=== PATIENT | male | born 1965 | race Caucasian/White ===

== ENCOUNTER 2017-05-31 17:40 | Emergency (ER) | payer SELFPAY ==
[2017-05-31 17:52] VITALS: BMI 32.3
--- NOTE | 2017-05-31 18:43 | DR.GENAD ---
HPI - PCP Primary Care Physician: unk - Complaint/Symptoms Chief Complaint Doctors Comments: Patient states he had to much to drink and had to much liquor. States he drank about a liter of gin and took a pain pill earlier. He denies chest pain , SOB or abdominal pain. States he has not local doctor. He denies any recent tauma. EMS states patient was unable to stand and they were afraid to leave him home alone. Patient denies headache, dizziness or blurred vision. States she lives along and does all his cooking and cleaning and is able to take care of himself at home. Chief Complaint:: ems was called out to pt being unresponsive. upon arrival ems states pt has had excessive etoh and was unable to care for himself. pt was unable to move himself or even pick his head up. - Nurses notes reviewed Nurses Notes Review: Yes - Source History Provided: Patient, EMS - Mode of Arrival Mode of Arrival: EMS - Timing Onset of Chief Complaint: 05/31/17 Came on: Gradually - Duration Duration: Constant How lon Duration: Hours - Location Location: unsteady gain - Severity Severity: Moderate - Modifying Factors Worsens:: ambulating Improves:: nothing PMH - PMH Past Medical History: Yes Past Medical History: Hypertension Past Surgical History: Yes Surgical History: Weight Loss Surgery, Other - Family History History of Family Medical Conditions: No - Social History Does any household member use tobacco: No Alcohol Use: Heavy, DAILY Do you use any recreational Drugs:: No Lives With: Family Lives Where: Home - infectious screening In the last 2 months have you had wt loss of >10#?: NO Have you had fever, night sweats or hemotysis?: No Have you traveled outside the country in the last 6 months?: No Isolation: Standard ROS - Review of Systems Constitutional: No Symptoms Reported, Weakness Eyes: No Symptoms Reported ENTM: No Symptoms Reported Respiratoy: No Symptoms Reported. negative: See HPI, Productive Cough, Non- Productive Cough, Moist Cough, Dry Cough, Hacking Cough, Barking Cough, Brassy Cough, Orthopnea, Short of Breath, Stridor, Wheezing, Hemoptysis, Other Cardiovascular: No Symptoms Reported. negative: See HPI, Chest Pain, Edema, Palpitations, Syncope, Cyanosis, Skin Mottling, Other Gastrointestinal/Abdominal: No Symptoms Reported. negative: See HPI, Abdominal Pain, Constipation, Diarrhea, Nausea, Vomiting, Food Intolerance, Other Genitourinary: No Symptoms Reported Neurological: No Symptoms Reported, Problems Walking Musculoskeletal: No Symptoms Reported Integumentary: No Symptoms Reported Hematologic/Lymphatic: No Symptoms Reported Endocrine: No Symptoms Reported Psychiatric: No Symptoms Reported PE - Vital Signs Vitals: Temperature 99.1 F Pulse Rate 61 Respiratory Rate 20 Blood Pressure [Right Arm] 124/76 Blood Pressure 129/78 O2 Sat by Pulse Oximetry 98 - General Limitations: No Limitations General Appearance: Alert, In No Apparent Distress, Appears Intoxicated - Head Head Exam: Normal Inspection, Atraumatic, Normocephalic - Eyes Eye exam: Normal Appearance, PERRL, EOMI. negative: Scleral Icterus, Conjunctival Injection, Nystagmus, Miosis, Mydrasis, Periorbital Swelling, Periorbital Tenderness, Other - ENT ENT Exam: Normal Exam, Normal Oropharynx, Normal External Ear Exam, Mucous Membranes Moist External Ear Exam: Normal External Inspection TM/Canal Exam: Bilateral Normal Nose Exam: Normal Nose Exam Mouth Exam: Normal Inspection Throat Exam: Normal Inspection - Neck Neck Exam: Normal Inspection, Full ROM, Trachea Midline - Chest Chest Inspection: Normal Inspection, Symmetric Chest Wall Rise - Respiratory Respiratory Exam: Normal Lung Sounds Bilat Respiratory Exam: Bilateral Clear to Auscultation - Cardiovascular Cardiovascular Exam: Regular Rate, Normal Rhythm, Normal Heart Sounds - Abdominal Exam Abdominal Exam: Normal Inspection, Normal Bowel Sounds, Soft. negative: Distention, Tenderness, Guarding, Rebound, Rigidity, Dimnished Bowel Sounds, Hyperactive Bowel Sounds, Hypoactive Bowel Sounds, Organomegaly, Trauma, Incision, Ascites, Mass, Bruit, Pulsatile Mass, Hernia, Other Abdominal Tenderness: negative: RUQ, RLQ, LUQ, LLQ, Epigastrium, Suprapubic, Diffuse, Mild, Moderate, Severe, Other - Extremities Extremities Exam: Normal Inspection, Full ROM, Normal Capillary Refill. negative: Tenderness, Edema, Joint Swelling, Calf Tenderness, Other - Back Back Exam: Normal Inspection, Full ROM - Neurologic Neurological Exam: Alert, Oriented X3, CN II-XII Intact, Reflexes Normal. negative: Normal Gait (gait not tested) - Psychiatric Psychiatric Exam: Normal Affect, Normal Mood - Skin Skin Exam: Warm, Dry, Intact, Normal Color ROR - Labs Reviewed Laboratory Results Reviewed?: Yes (all labs and x-ray results reviewed) Result Diagrams: 05/31/17 18:45 05/31/17 18:45 - Diagnosis Discharge Problem: Hyperglycemia, Alcohol abuse Acute alcohol intoxication Qualifiers: Complication of substance-induced condition: uncomplicated Qualified Code(s): F10.929 - Alcohol use, unspecified with intoxication, unspecified - Discharge Plan Disposition: 07 AGAINST MEDICAL ADVICE Condition: Stable - Follow ups/Referrals Follow ups/Referrals: NFD,None [Primary Care Provider] - 3 days - Instructions Instructions: Alcohol Use Disorder
[2017-05-31 18:44] LABS: BILIRUBIN,URINE NEGATIVE (NEGATIVE); BLOOD/HEMOGLOBIN,URINE NEGATIVE (NEGATIVE); GLUCOSE, URINE NEGATIVE (NEGATIVE); KETONES,URINE NEGATIVE (NEGATIVE); LEUKOCYTE ESTERASE ,URINE NEGATIVE (NEGATIVE); NITRITES,URINE NEGATIVE (NEGATIVE); PROTEIN,URINE NEGATIVE (NEGATIVE); UROBILINOGEN,URINE NORMAL (NORMAL)
[2017-05-31 18:55] LABS: BASOPHILS # (AUTO) 0.1 X10^3/uL (0.0-0.1); BASOPHILS % (AUTO) 1.2 % (0.2-1.0); EOSINOPHILS # (AUTO) 0.1 x10^3/uL (0.0-0.2); EOSINOPHILS % (AUTO) 2.7 % (0.9-2.9); HEMATOCRIT 37.6 % (42.0-54.0); HEMOGLOBIN 12.1 g/dL (13.5-18.0); LYMPHOCYTES % (AUTO) 39.1 % (21.0-51.0); MEAN CORPUSCULAR HEMOGLOBIN 23.7 pg (27.0-34.0); MEAN CORPUSCULAR HGB CONC 32.2 g/dL (33.0-35.0); MEAN CORPUSCULAR VOLUME 73.5 fL (80.0-100.0); MEAN PLATELET VOLUME 8.8 fL (7.4-11.0); MONOCYTES # (AUTO) 0.6 x10^3/uL (0.3-0.8); MONOCYTES % (AUTO) 11.1 % (0.0-13.0); NEUTROPHILS # (AUTO) 2.4 x10^3/uL (2.2-4.8); NEUTROPHILS % (AUTO) 45.9 % (42.0-75.0); PLATELET COUNT 206 X10^3/uL (150.0-450.0); RED BLOOD COUNT 5.11 X10^6/uL (4.7-6.0); RED CELL DISTRIBUTION WIDTH 19.3 % (11.6-16.5); WHITE BLOOD COUNT 5.1 X10^3/uL (3.6-10.0)
[2017-05-31] MEDS ORDERED: NS 1000 ML 1,000 ML with THIAMINE HCL INJ 100 MG, MAGNESIUM SULFATE 50% INJ 1 GM, MVI I... IV SCH ×5 (19:00)
--- NOTE | 2017-05-31 19:01 | RAD ---
Examination: Portable AP chest History: Unresponsive Findings: Normal transverse heart diameter with clear lungs and pleural spaces. Impression: No acute chest findings on portable AP chest. Reported By:
[2017-05-31] MEDS ORDERED: MAGNESIUM SULFATE 50% INJ ONE (19:09)
[2017-05-31] MEDS ORDERED: NS 1000 ML 1,000 ML ONE (19:09)
[2017-05-31] MEDS ORDERED: THIAMINE HCL INJ ONE (19:10)
[2017-05-31] MEDS ORDERED: PHENOBARBITAL SODIUM INJ 65 MG VIAL ONE (19:11)
[2017-05-31 19:12] LABS: COLOR,URINE PALE YELLOW (YELLOW)
[2017-05-31] MEDS ORDERED: MVI INJ (ADULT) IV ONE (19:12)
[2017-05-31 19:13] LABS: APPEARANCE,URINE CLEAR (CLEAR); BACTERIA,URINE NEGATIVE /HPF (NEGATIVE); RBC,URINE 0-3 /HPF (NEGATIVE); SQUAMOUS EPITHELIAL CELL,UR RARE /HPF (NEGATIVE)
[2017-05-31 19:14] LABS: BLOOD UREA NITROGEN 15 mg/dL (7-18); CALCIUM 8.2 mg/dL (8.5-10.1); CARBON DIOXIDE 25.4 mmol/L (21-32); CHLORIDE 110 mmol/L (98-107); CREATININE 0.98 mg/dL (0.70-1.30); SODIUM 146 mmol/L (136-145); TROPONIN I < 0.02 ng/mL (0-1.5); eGFR BLACK RACES > 60 (>60); eGFR NON BLACK RACES > 60 (>60)
[2017-05-31 19:15] LABS: HYPOCHROMASIA SLIGHT; PLATELET MORPHOLOGY COMMENT NORMAL (NORMAL)
[2017-05-31 19:17] LABS: ALANINE AMINOTRANSFERASE 20 Units/L (12-78); ALBUMIN 3.6 g/dL (3.4-5.0); ALKALINE PHOSPHATASE 75 Units/L (46-116); AMYLASE 84 Units/L (25-115); ASPARTATE AMINO TRANSFERASE 28 Units/L (15-37); BLOOD ALCOHOL 287 mg/dL (0-19.9); CKMB % 0.9 % (<4); CREATINE KINASE 300 Units/L (39-308); CREATINE KINASE MB 2.7 ng/mL (0-4.0); LIPASE 243 Units/L (73-393); MAGNESIUM 2.1 mg/dL (1.7-2.9); TOTAL PROTEIN 6.7 g/dL (6.4-8.2)
[2017-05-31 21:37] VITALS: BP 129/72
== END 2017-05-31 21:38 | disposition left against medical advice (07) ==
LOC: ER 17:59
DX: F10.929 Alcohol use, unspecified with intoxication, unspecified (principal); R73.9 Hyperglycemia, unspecified
CPT/HCPCS: 36415; 71045; 80053; 80307; 81001; 82150; 82550; 82553; 83690; 83735; 84484; 85025; 85610; 85730; 93005; 93010; 96365; 96367; 99282; 99284; A4222; G0434; G6040; J2560; J3411; J3475

== ENCOUNTER 2024-12-12 15:03 | Inpatient (IN) ==
[2024-12-12] MEDS ORDERED: LEVSIN/MAALOX/LIDOC VISC ONE (15:17)
[2024-12-12] MEDS ORDERED: PROTONIX INJ 40 MG VIAL ONE (15:17)
[2024-12-12] MEDS ORDERED: ZOFRAN INJ 4 MG VIAL ONE (15:17)
[2024-12-12] MEDS ORDERED: TORADOL 30 MG VIAL ONE (15:27)
--- NOTE | 2024-12-12 15:28 | DR.ABDMALE ---
HPI Time seen Time Seen by Provider: 12/12/24 15:27 PCP Primary Care Physician: NFD Complaint Chief Complaint Doctors Comments: Patient states that when he woke up he felt fine but 30 minutes ago he began to have some right upper quadrant and left upper quadrant abdominal pain that made him almost passed out. Patient stated he did ate some old chicken today. No other day has anything to do would he also smoke marijuana and used meth today also. He states he became nauseated and developed this abdominal pain prior to going fishing. Chief Complaint:: Pt states he woke up feeling fine today, but about 30 minutes ago he began having RUQ and LUQ abdominal pain that made him collapse. Pt denies losing consciousness and states it's "easing off now". Does admit some nausea right after the pain first hit, but is not nauseated now. Pt admits to using marijuana and meth "a few days ago". Pt states he ate an old rotisserie chicken earlier today. COVID-19 Coronavirus risk:travel/contact w/high risk person: No Has patient experienced Coronavirus symptoms: No Mode of arrival Mode of Arrival: Ambulatory Timing Onset of Chief Complaint: 12/12/24 PMH PMH Past Medical History: Yes Past Medical History: Arthritis, Gout and Hypertension Past Surgical History: Yes Surgical History: Ortho Surgery and Weight Loss Surgery Family History History of Family Medical Conditions: Yes Family Medical History: Diabetes Mellitus, Cancer, AR and Coronary Artery Disease Social History Type of Tobacco Use: Cigarettes Do you use any recreational Drugs:: Yes (meth, weed) Lives With: Friend Lives Where: Home Travel Risk Coronavirus risk:travel/contact w/high risk person: No Has patient experienced Coronavirus symptoms: No Infectious screening Have you traveled outside the country in the last 6 months?: No Isolation: Standard ROS Review of Systems Constitutional: Other (Abdominal pain with nausea and vomiting that occurred approximately 30 minutes prior to coming to the emergency department.) Eyes: No Symptoms Reported ENTM: No Symptoms Reported Respiratoy: No Symptoms Reported Cardiovascular: No Symptoms Reported Gastrointestinal/Abdominal: Abdominal Pain, Nausea and Vomiting Genitourinary: No Symptoms Reported Neurological: No Symptoms Reported Musculoskeletal: No Symptoms Reported Integumentary: No Symptoms Reported Hematologic/Lymphatic: No Symptoms Reported Endocrine: No Symptoms Reported Psychiatric: No Symptoms Reported All Other Systems: Reviewed and Negative PE Vital Signs Vital Signs: Temp Pulse Resp BP Pulse Ox O2 Del Method 12/12/24 15:31 20 12/12/24 15:30 20 12/12/24 15:03 97.8 F 69 20 203/100 99 Room Air General Limitations: No Limitations General Appearance: In Distress (moderate distress) Head Head Exam: Normal Inspection, Atraumatic and Normocephalic Eyes Eye exam: Normal Appearance, PERRL and EOMI ENT ENT Exam: Normal Exam, Normal Oropharynx and Normal External Ear Exam Neck Neck Exam: Normal Inspection, Full ROM and Trachea Midline Chest Chest Inspection: Normal Inspection, Symmetric Chest Wall Rise and Tenderness Respiratory Respiratory Exam: Normal Lung Sounds Bilat Cardiovascular Cardiovascular Exam: Regular Rate Abdominal Exam Abdominal Exam: Normal Bowel Sounds, Soft and Tenderness (epigastrium) Abdominal Tenderness: Epigastrium Rectal Rectal Exam: Deferred Back Back Exam: Normal Inspection and Full ROM Extremeties Extremities Exam: Normal Inspection Neurologic Neurological Exam: Alert, Oriented X3 and CN II-XII Intact Psychiatric Psychiatric Exam: Agitated Skin Skin Exam: Warm, Dry and Intact MDM Differential Diagnosis Differential Diagnosis: Bowel Obstruction, Esophageal rupture, Esophagitis, Gastritus/PUD, Gastroenteritis and Hernia COURSE Treatment Treatment: Patient very relatively stable during ER evaluation. Initially we did give the patient normal saline 1 L IV he was also given Zofran with Protonix 40 mg Protonix IV and Zofran 4 mg IV. And later patient was given Toradol 30 mg IV for pain. The patient did have a CT scan done of his abdomen pelvis did show free air in the upper abdominal cavity this to be consistent with a hollow viscus perforation in that area. Patient was discussed with Dr. Stovall and he wants the patient to be admitted to the hospital for the perforation and to be given Zosyn 3.375 mg IV here and to do it every 8 hours he also wanted the patient be n.p.o. and we did get an EKG and chest x-ray for further evaluation also. This patient was told of the intent to put him in the hospital we did discuss it with case management and this patient will be an inpatient. This patient was agreeable to the inpatient admission. ROR Labs Reviewed Laboratory Results Reviewed?: Yes 12/12/24 15:10 12/12/24 15:10 Laboratory: WBC 6.8 X10^3/uL (3.6-10.0) 12/12/24 15:10 RBC 4.70 X10^6/uL (4.7-6.0) 12/12/24 15:10 Hgb 11.1 g/dL (13.5-18.0) L 12/12/24 15:10 Hct 34.8 % (42.0-54.0) L 12/12/24 15:10 MCV 74.0 fL (80.0-100.0) L 12/12/24 15:10 MCH 23.5 pg (27.0-34.0) L 12/12/24 15:10 MCHC 31.8 g/dL (33.0-35.0) L 12/12/24 15:10 RDW 16.6 % (11.6-16.5) H 12/12/24 15:10 Plt Count 287 X10^3/uL (150.0-450.0) 12/12/24 15:10 Plt Count Comment Adequate (ADEQUATE) 12/12/24 15:10 MPV 9.0 fL (7.4-11.0) 12/12/24 15:10 Neut % (Auto) 55.8 % (42.0-75.0) 12/12/24 15:10 Lymph % (Auto) 31.7 % (21.0-51.0) 12/12/24 15:10 [place] % (Auto) 9.3 % (0.0-13.0) 12/12/24 15:10 Eos % (Auto) 2.1 % (0.9-2.9) 12/12/24 15:10 Baso % (Auto) 1.1 % (0.2-1.0) H 12/12/24 15:10 Neut # (Auto) 3.8 x10^3/uL (2.2-4.8) 12/12/24 15:10 Lymph # (Auto) 2.1 X10^3/uL (1.3-2.9) 12/12/24 15:10 [place] # (Auto) 0.6 x10^3/uL (0.3-0.8) 12/12/24 15:10 Eos # (Auto) 0.1 x10^3/uL (0.0-0.2) 12/12/24 15:10 Baso # (Auto) 0.1 X10^3/uL (0.0-0.1) 12/12/24 15:10 Absolute Nucleated RBC 0.0 /100WBC 12/12/24 15:10 Plt Morphology Comment Normal (NORMAL) 12/12/24 15:10 RBC Morphology Abnormal (NORMAL) 12/12/24 15:10 Hypochromasia 1+ A 12/12/24 15:10 Microcytosis Slight A 12/12/24 15:10 Target Cells Slight A 12/12/24 15:10 Sodium 143 mmol/L (136-145) 12/12/24 15:10 Corrected Sodium 143 mmol/L (136-145) 12/12/24 15:10 Potassium 3.7 mmol/L (3.5-5.1) 12/12/24 15:10 Chloride 105 mmol/L (98-107) 12/12/24 15:10 Carbon Dioxide 30.3 mmol/L (21-32) 12/12/24 15:10 BUN 15 mg/dL (7-18) 12/12/24 15:10 Creatinine 1.14 mg/dL (0.70-1.30) 12/12/24 15:10 Est GFR (MDRD) Af Amer > 60 (>60) 12/12/24 15:10 Est GFR (MDRD) Non-Af > 60 (>60) 12/12/24 15:10 Glucose 113 mg/dL (65-99) H 12/12/24 15:10 Calcium 9.0 mg/dL (8.5-10.1) 12/12/24 15:10 Corrected Calcium TNP 12/12/24 15:10 Total Bilirubin 0.30 mg/dL (0.2-1.0) 12/12/24 15:10 AST 19 Units/L (15-37) 12/12/24 15:10 ALT 29 Units/L (12-78) 12/12/24 15:10 Alkaline Phosphatase 135 Units/L (46-116) H 12/12/24 15:10 Total Protein 7.6 g/dL (6.4-8.2) 12/12/24 15:10 Albumin 3.7 g/dL (3.4-5.0) 12/12/24 15:10 Globulin 3.9 g/dL (2.5-4.5) 12/12/24 15:10 Albumin/Globulin Ratio 0.9 Ratio (1.1-2.1) L 12/12/24 15:10 Opioid Opioid Risk Tool Age (Malick box if 16-45): No History of Preadolescent Sexual Abuse: No Total: 0 Total Score Risk Category: Low Risk Copyright: Nic GAINES predicting aberrant behaviors Discharge Plan Diagnosis Discharge Problem: Perforation bowel, Gastric perforation Discharge Plan Patient Disposition: ADMITTED INPATIENT Condition: Stable Prescriptions: No Action [facility] Concerns: Post Hospitalization: new medications and changes needed to prevent readmission or further decline. Pt educated and given instructions on all concerns. Plan of Treatment: Continue with present treatment and follow up plan. Pt is to keep follow up appointment as instructed and take medications as ordered. Orders to Discharge Patient Discharge Orders: Transfer (Routine); Ordered 12/12/24 Ordered By: Richi Helton Follow ups/Referrals Follow ups/Referrals: NFD,None [Primary Care Provider] - 3 days Instructions Stand Alone Forms: Find Help Web Site, Post Hospital Follow Up Care Print Language: MALIAN
[2024-12-12] MEDS: PROTONIX INJ 40 MG VIAL IVP ONE (15:30)
[2024-12-12] MEDS: LEVSIN/MAALOX/LIDOC VISC PO ONE (15:30)
[2024-12-12] MEDS: ZOFRAN INJ 4 MG VIAL IVP ONE (15:31)
[2024-12-12] MEDS: TORADOL 30 MG VIAL IVP ONE (15:31)
[2024-12-12 15:57] LABS: MEAN PLATELET VOLUME 9.0 fL (7.4-11.0); RED CELL DISTRIBUTION WIDTH 16.6 % (11.6-16.5)
[2024-12-12 16:06] LABS: COR NA(FOR HYPERGLY) 143 mmol/L (136-145); CREATININE 1.14 mg/dL (0.70-1.30); eGFR NON BLACK RACES > 60 (>60)
--- NOTE | 2024-12-12 16:07 | CT ---
EXAM: ABDOMEN/PELVIS W/O CON HISTORY: Pt states he woke up feeling fine today, but about 30 minutes ago he began having RUQ and LUQ abdominal pain that made him collapse. Pt denies losing consciousness and states it's "easing off now". Does admit some nausea.; COMPARISON: None. TECHNIQUE: CT of the abdomen and pelvis without intravenous contrast FINDINGS: The lung bases are clear. Sensitivity is reduced without intravenous contrast. The abdominal aorta tapers normally with scattered atherosclerotic calcifications. No liver mass. The gallbladder is contracted. Normal adrenal glands. The kidneys are not obstructed. 2 mm nonobstructing right nephrolithiasis. Normal spleen. Atrophy of the pancreas. Postoperative changes of the stomach. Small hiatal hernia is present. Moderate volume of stool throughout the colon. The appendix is obscured. Small volume of free fluid is noted in the right pericolic gutter, abnormal. There are locules of free air visible in the upper abdomen consistent with hollow viscus perforation. Degenerative spinal changes are noted. IMPRESSION: Locules of free air are noted in the upper abdomen consistent with hollow viscus perforation. Surgical consultation is advised. The etiology of the perforation is not certain. The appendix is obscured and can not be identified normal or abnormal. There is inflammatory fluid in the right pericolic gutter of uncertain consequence. All CT scans at this facility use dose modulation, iterative reconstruction, and/or weight based dosing when appropriate to reduce radiation dose to as low as reasonably achievable. THIS IS AN ELECTRONICALLY VERIFIED FINAL REPORT 12/12/2024 4:03 PM - Electronically signed by Delonte Baxter MD
[2024-12-12 16:19] LABS: PLATELET MORPHOLOGY COMMENT NORMAL (NORMAL)
[2024-12-12] MEDS: ZOSYN VIAL 3.375 GRAMS 3.375 G in NS 100 ML IV 100 ML IV ONE (17:10)
[2024-12-12] MEDS ORDERED: KETAMINE HCL ONE (17:22)
[2024-12-12] MEDS ORDERED: ULTANE GAS IN ONE (17:22)
[2024-12-12] MEDS ORDERED: ZOFRAN INJ 4 MG VIAL IVP PRN (17:33)
--- NOTE | 2024-12-12 17:39 | EKG ---
Test Reason : clearance Blood Pressure : */* mmHG Vent. Rate : 57 BPM Atrial Rate : 57 BPM P-R Int : 156 ms QRS Dur : 92 ms QT Int : 432 ms P-R-T Axes : 74 46 -2 degrees QTc Int : 420 ms Sinus bradycardia with premature atrial complexes Abnormal ECG No previous ECGs available Confirmed by Ba Matos MD ([id number]) on 12/13/2024 7:28:11 AM Referred By: Confirmed By: Ba Matos MD
[2024-12-12] MEDS ORDERED: APRESOLINE INJ 20 MG VIAL ONE (17:43)
[2024-12-12] MEDS: APRESOLINE INJ 20 MG VIAL IVP ONE (17:46)
--- NOTE | 2024-12-12 17:50 | RAD ---
EXAM: CHEST X-RAY HISTORY: Evaluation for presurgical clearance. TECHNIQUE: AP chest x-ray dated December 12, 2024 at 5:12 PM. COMPARISON: CXR dated May 31, 2017. FINDINGS: The heart size and mediastinum are within normal limits. The lung [place] and costophrenic angles are clear. There is no acute parenchymal infiltrate, pleural effusion, or pneumothorax seen. The visualized bony structures are within normal limits. IMPRESSION: 1. No evidence for acute cardiopulmonary disease seen. 2. No evidence for active tuberculosis or other communicable diseases. 3. No significant interval change seen. THIS IS AN ELECTRONICALLY VERIFIED FINAL REPORT 12/12/2024 5:38 PM - Electronically signed by Coy Collins MD
[2024-12-12] MEDS: ZOSYN VIAL 3.375 GRAMS 3.375 G in NS 100 ML IV 100 ML IV SCH (18:02)
[2024-12-12] MEDS: FLAGYL IV PREMIX 500 MG BAG 500 MG/100 ML BAG IV SCH (18:13)
[2024-12-12] MEDS: D5 NS 1,000 ML IV 1,000 ML IV SCH (18:13)
[2024-12-12] MEDS: MORPHINE SULFATE INJ 4 MG IVP PRN (18:22)
[2024-12-12 18:26] VITALS: BMI 28.8
[2024-12-12] MEDS: PROTONIX INJ 40 MG VIAL IVP SCH (21:16)
[2024-12-13 05:40] LABS: MEAN PLATELET VOLUME 8.2 fL (7.4-11.0); RED CELL DISTRIBUTION WIDTH 16.4 % (11.6-16.5)
[2024-12-13 05:48] LABS: PLATELET MORPHOLOGY COMMENT NORMAL (NORMAL)
[2024-12-13 05:52] LABS: COR CA(FOR HYPOALB) 9.3 mg/dL (8.5-10.1); COR NA(FOR HYPERGLY) 142 mmol/L (136-145); CREATININE 1.04 mg/dL (0.70-1.30); eGFR NON BLACK RACES > 60 (>60)
[2024-12-13] MEDS ORDERED: CONSULT PHARMACY - POTASSIUM & MAGNESIUM XX SCH (06:00)
[2024-12-13] MEDS ORDERED: NS 250 ML IV 250 ML IV ONE (07:10)
[2024-12-13] MEDS ORDERED: READI-CAT 2 ONE (08:07)
[2024-12-13] MEDS: MAGNESIUM SULFATE 1 GRAM/100 mL PREMIX 1 G/100 ML BAG IV SCH (08:10)
--- NOTE | 2024-12-13 08:11 | RAD ---
EXAM: KUB HISTORY: abd pain ; COMPARISON: CT dated 12/12/2024 TECHNIQUE: AP abdomen, supine FINDINGS: No abnormally distended bowel loops. Mild colonic stool burden. No gross free peritoneal air. IMPRESSION: Nonobstructive bowel gas pattern. No gross free air seen on AP view. THIS IS AN ELECTRONICALLY VERIFIED FINAL REPORT 12/13/2024 8:08 AM - Electronically signed by Juan A Parisi MD
[2024-12-13] MEDS: K-RIDER 10 MEQ/100 ML WATER 10 MEQ/100 ML BAG IV SCH (08:23)
[2024-12-13] MEDS ORDERED: MAG-OX TAB PO SCH (09:00)
[2024-12-13] MEDS ORDERED: K-DUR TAB 20 MEQ PO SCH (09:00)
--- NOTE | 2024-12-13 09:41 | DR.PROGNOT ---
HOSPITAL PROGRESS NOTE Progress Note for Day of: Progress Note Date: 12/13/24 Chief Complaint Chief Complaint: less abdominal pain . mild pain RT side, no nausea , no vomiting . no BM today . WBC 10,4 bun,Creat ,normal ,Mg 1,6 ,LFT normal ,amylase, lipase normal . KUB, no free air , no obstruction .. abdomen ,soft , flat , nontender , BS+ Past Medical Family Social History Allergies: Allergies No Known Drug Allergies Allergy (Unknown, Verified 12/12/24 15:13) Onset Date: 03/30/2020 Vital Signs Vital Signs: Vital Signs Temperature 98.6 F Temperature 99.0 F Pulse Rate [Radial] 86 Pulse Rate [Radial] 90 Respiratory Rate 18 Respiratory Rate 17 Blood Pressure [Left Arm] 164/78 Blood Pressure [Left Arm] 176/74 Blood Pressure [Left Arm] 148/90 O2 Sat by Pulse Oximetry 95 O2 Sat by Pulse Oximetry 95 Physical Exam Oriented: Normal Eyes: Normal Ear: Normal Throat: Normal Respiratory: Normal Cardiovascular: Normal GI:Auscultation: Decreased GI:Palpation: Normal (soft, flat abdomen with mild RT side tenderness , no rebound or rigidity .) Speech Pattern: Clear and Appropriate Laboratory and Diagnostics 12/13/24 05:28 12/13/24 05:28 Labs: Laboratory WBC 10.4 X10^3/uL (3.6-10.0) H 12/13/24 05:28 RBC 4.76 X10^6/uL (4.7-6.0) 12/13/24 05:28 Hgb 11.2 g/dL (13.5-18.0) L 12/13/24 05:28 Hct 35.1 % (42.0-54.0) L 12/13/24 05:28 MCV 73.7 fL (80.0-100.0) L 12/13/24 05:28 MCH 23.6 pg (27.0-34.0) L 12/13/24 05:28 MCHC 32.0 g/dL (33.0-35.0) L 12/13/24 05:28 RDW 16.4 % (11.6-16.5) 12/13/24 05:28 Plt Count 236 X10^3/uL (150.0-450.0) 12/13/24 05:28 Plt Count Comment Adequate (ADEQUATE) 12/13/24 05:28 MPV 8.2 fL (7.4-11.0) 12/13/24 05:28 Neut % (Auto) 84.9 % (42.0-75.0) H 12/13/24 05:28 Lymph % (Auto) 6.7 % (21.0-51.0) L 12/13/24 05:28 [place] % (Auto) 8.0 % (0.0-13.0) 12/13/24 05:28 Eos % (Auto) 0.0 % (0.9-2.9) L 12/13/24 05:28 Baso % (Auto) 0.4 % (0.2-1.0) 12/13/24 05: Neut # (Auto) 8.8 x10^3/uL (2.2-4.8) H 12/13/24 05:28 Lymph # (Auto) 0.7 X10^3/uL (1.3-2.9) L 12/13/24 05:28 [place] # (Auto) 0.8 x10^3/uL (0.3-0.8) 12/13/24 05:28 Eos # (Auto) 0.0 x10^3/uL (0.0-0.2) 12/13/24 05:28 Baso # (Auto) 0.0 X10^3/uL (0.0-0.1) 12/13/24 05:28 Absolute Nucleated RBC 0.0 /100WBC 12/13/24 05:28 Plt Morphology Comment Normal (NORMAL) 12/13/24 05:28 RBC Morphology Abnormal (NORMAL) 12/13/24 05:28 Hypochromasia 1+ A 12/13/24 05:28 Poikilocytosis Slight A 12/13/24 05:28 Microcytosis Slight A 12/13/24 05:28 Target Cells Slight A 12/12/24 15:10 Sodium 142 mmol/L (136-145) 12/13/24 05:28 Corrected Sodium 142 mmol/L (136-145) 12/13/24 05:28 Potassium 3.7 mmol/L (3.5-5.1) 12/13/24 05:28 Chloride 106 mmol/L (98-107) 12/13/24 05:28 Carbon Dioxide 28.3 mmol/L (21-32) 12/13/24 05:28 BUN 15 mg/dL (7-18) 12/13/24 05:28 Creatinine 1.04 mg/dL (0.70-1.30) 12/13/24 05:28 Est GFR (MDRD) Af Amer > 60 (>60) 12/13/24 05:28 Est GFR (MDRD) Non-Af > 60 (>60) 12/13/24 05:28 Glucose 115 mg/dL (65-99) H 12/13/24 05:28 Calcium 8.4 mg/dL (8.5-10.1) L 12/13/24 05:28 Corrected Calcium 9.3 mg/dL (8.5-10.1) 12/13/24 05:28 Magnesium 1.6 mg/dL (2.0-2.9) L 12/13/24 05:28 Total Bilirubin 0.70 mg/dL (0.2-1.0) 12/13/24 05:28 AST 15 Units/L (15-37) 12/13/24 05:28 ALT 21 Units/L (12-78) 12/13/24 05:28 Alkaline Phosphatase 105 Units/L (46-116) 12/13/24 05:28 Total Protein 6.3 g/dL (6.4-8.2) L 12/13/24 05:28 Albumin 2.9 g/dL (3.4-5.0) L 12/13/24 05:28 Globulin 3.4 g/dL (2.5-4.5) 12/13/24 05:28 Albumin/Globulin Ratio 0.9 Ratio (1.1-2.1) L 12/13/24 05:28 Amylase 73 Units/L (25-115) 12/12/24 15:10 Lipase 46 Units/L (16-77) 12/12/24 15:10 Assessment and Plan 1: acute abdominal pain , small amount of fee air. on IV ABT , NPO . for abd/pelv CT with contrast . 2: HTN . to have medical cosult . Problem Patient Problems: Patient Problems Gastric perforation (Acute) K25.5 Perforation bowel (Acute) K63.1
[2024-12-13] MEDS: NS 250 ML IV 25 ML IV PRN (09:44)
[2024-12-13] MEDS ORDERED: OMNIPAQUE 350 mg/mL 100 mL BTL 100 ML ONE (09:54)
--- NOTE | 2024-12-13 10:18 | DR.CONSULT ---
CONSULT Consultation for Day of: Date: 12/13/24 Chief Complaint Chief Complaint: abdominal pain Allergies Allergies Allergy/AdvReac Type Severity Reaction Status Date / Time No Known Drug Allergies Allergy Unknown Verified 12/12/24 15:13 History of Present Illness History of Present Illness: Patient presented with worsening abdominal pain, was found to have possible perforation. Dr. Wadsworth admitted the patient. He is feeling better this morning, still has some abdominal pain but not as severe as yesterday. KUB did not show any free air or obstruction. Repeat CT abdomen pelvis is pending. Medicine was consulted for hypertension. Patient states he does not take any medicine for hypertension at this time. He used to be on losartan over a year ago. He was given hydralazine which did help bring his blood pressure down. He is currently on IV antibiotics and fluids. Labs/imaging reviewed: - WBC 10.4 hemoglobin 11.2 potassium 3.7 magnesium 1.6 - CTAP reviewed - KUB reviewed Plan: Follow repeat CTAP. Follow surgery recommendations. N.p.o. for now. Decrease fluids to 100cc/hour. Continue IV antibiotics. Replace electrolytes as per protocol. Add hydralazine 10 mg every 6 as needed. Continue pain control. Will restart losartan once patient able to take p.o. meds. Monitor a.m. labs and imaging. Past Medical History Past Medical History: Arthritis, Gout and Hypertension Past Surgical History Surgical History: Ortho Surgery and Weight Loss Surgery Family History Family Medical History: Diabetes Mellitus, Cancer and Hypertension Social History Does patient currently use any type of tobacco product: Yes Type of Tobacco Use: Cigarettes Alcohol Use: None Drug Use: Marijuana Medications Home Medications: No Known Drug Allergies Allergy (Unknown, Verified 12/12/24 15:13) CONTINUE taking the following medications NK 12/12/24 [History] Review of Systems Constitutional: No Symptoms Reported Eyes: No Symptoms Reported ENT: No Symptoms Reported Respiratory: No Symptoms Reported Cardiovascular: No Symptoms Reported Gastrointestinal: Abdominal Pain Genitourinary: No Symptoms Reported Musculoskeletal: No Symptoms Reported Skin: No Symptoms Reported Neurological: No Symptoms Reported Physical Exam Vital Signs: Vital Signs Temperature 98.6 F Temperature 99.0 F Pulse Rate [Radial] 86 Pulse Rate [Radial] 90 Respiratory Rate 18 Respiratory Rate 17 Blood Pressure [Left Arm] 164/78 Blood Pressure [Left Arm] 176/74 Blood Pressure [Left Arm] 148/90 O2 Sat by Pulse Oximetry 95 O2 Sat by Pulse Oximetry 95 Oriented: Normal Respiratory: Clear Throughout Cardiovascular: Normal Auscultation: Bowel Sounds: Decreased Tenderness: Periumbilical and Mild Skin: Normal Musculoskeletal: Normal Psychiatric: Normal Mood Description: Calm Affect: Normal Speech Pattern: Clear and Appropriate Plan (1) Gastric perforation: Status: Acute (2) Hypertension: Status: Acute Qualifiers: Hypertension type: primary hypertension Qualified Code(s): I10 - Essential (primary) hypertension (3) Arthritis: Status: Chronic (4) Degenerative arthritis of cervical spine: Status: Chronic (5) Hypomagnesemia: Status: Acute
--- NOTE | 2024-12-13 11:21 | CT ---
EXAM: CT abdomen pelvis with contrast HISTORY: Abdominal pain, hollow viscus perforation 12/12/2024 TECHNIQUE: Axial postcontrast images with coronal and sagittal reformats. Dose reduction procedures were used with mA/kv adjusted for body size. COMPARISON: 12/12/2024 CT abdomen pelvis without contrast FINDINGS: Lung bases are free of acute infiltrates. Very small right pleural effusion is present. Trace left pleural effusion present. Redemonstrated postsurgical changes in the stomach and small hiatal hernia. Precise age of these changes is unclear. Scattered small locules of free intraperitoneal air most prominently on axial series 3, image 24. In the absence of recent abdominal surgery, peritoneal dialysis, PEG tube placement or manipulation this indicates a perforated viscus. This was reported on the examination 12/12/2024. New on this examination is the presence of intraperitoneal fluid in the subhepatic space tracking down the right pericolic gutter into the pelvis. This could indicate a possible gastric or duodenal perforation. The liver, spleen, adrenal glands, and pancreas appear within normal limits. No opaque stones present within the gallbladder. Kidneys are unobstructed. Left kidney demonstrates no evidence for calculi or masses. No left ureteral calculus is identified. [place] nonobstructing right renal calculi are present. Additionally there is a suggestion of a possible 3.8 x 3.6 cm right lower pole renal mass possibly a neoplasm. Correlation with right renal sonogram is recommended. This was not obvious on the previous noncontrast examination. No right ureteral calculus identified. Appendix is now visualized and appears normal. Abdominal aorta is normal in caliber. No enlarged intraperitoneal or retroperitoneal lymphadenopathy identified. There are no findings suggestive of enteritis, colitis, or diverticulitis. No pelvic masses or pelvic lymphadenopathy identified. No definite bladder abnormality identified. Prostate gland is enlarged. No lytic or blastic skeletal lesions of significance identified. IMPRESSION: Persistence of the previously described small locules of free intraperitoneal air suspicious for perforated viscus. Interval development of fluid in the right subhepatic space and surrounding the descending duodenal. The fluid tracks down the right pericolic gutter into the pelvis. This could indicate the duodenal or distal stomach as a possible site of perforation. Possible 3.8 x 3.6 cm enhancing right lower pole renal mass. Renal cell neoplasm not excluded. Right renal sonography recommended for further evaluation. Eventually MRI may be required. Enlarged prostate gland Small hiatal hernia THIS IS AN ELECTRONICALLY VERIFIED FINAL REPORT 12/13/2024 11:18 AM - Electronically signed by Mich Villegas MD
[2024-12-13] MEDS ORDERED: STERILE WATER IRRIGATION IR ONE (11:30)
[2024-12-13] MEDS: APRESOLINE INJ 20 MG VIAL IVP PRN (13:34)
[2024-12-13] MEDS: NS 1,000 ML IV 1,000 ML ONE ×2 (13:44→14:48)
[2024-12-13] MEDS: POLYMYXIN B SULFATE ONE (13:48)
[2024-12-13] MEDS: XYLOCAINE 2 % (PLAIN) ONE (14:08)
[2024-12-13] MEDS: ZOFRAN INJ 4 MG VIAL ONE (14:08)
[2024-12-13] MEDS: TORADOL 30 MG VIAL ONE (14:08)
[2024-12-13] MEDS: ZEMURON 100 MG VIAL ONE (14:08)
[2024-12-13] MEDS: DIPRIVAN VIAL 20 ML ONE (14:08)
[2024-12-13] MEDS: DECADRON INJ ONE (14:08)
[2024-12-13] MEDS: REGLAN INJ 10 MG VIAL ONE (14:08)
[2024-12-13] MEDS: OFIRMEV IV 1000 MG VIAL 1,000 MG/100 ML VIAL IV ONE (14:08)
[2024-12-13] MEDS: PRECEDEX INJ VIAL ONE (14:10)
[2024-12-13] MEDS: FENTANYL VIAL INJ 100 mcg ONE (14:11)
[2024-12-13] MEDS: VERSED ONE (14:11)
[2024-12-13] MEDS: PEPCID 20 MG VIAL ONE (14:20)
[2024-12-13] MEDS: ULTANE GAS IN ONE (14:21)
[2024-12-13] MEDS: NS IV PRN (14:28)
[2024-12-13] MEDS: PEPCID 20 MG VIAL IVP PRN (14:28)
[2024-12-13] MEDS: ZOFRAN INJ 4 MG VIAL IVP PRN (14:28)
[2024-12-13] MEDS: REGLAN INJ 10 MG VIAL IVP PRN (14:28)
[2024-12-13] MEDS: VERSED IVP PRN (14:33)
[2024-12-13] MEDS: FENTANYL VIAL INJ 100 mcg IVP PRN (14:35)
[2024-12-13] MEDS: XYLOCAINE 2 % (PLAIN) IJ PRN (14:35)
[2024-12-13] MEDS: DIPRIVAN VIAL 150 ML IVP PRN (14:35)
[2024-12-13] MEDS: KETAMINE HCL IV PRN (14:35)
[2024-12-13] MEDS: NS 100 ML IV 100 ML ONE (14:36)
[2024-12-13] MEDS: ANCEF VIAL 1 GRAM ONE (14:36)
[2024-12-13] MEDS: ANCEF VIAL 1 GRAM IV PRN (14:40)
[2024-12-13] MEDS: DECADRON INJ IVP PRN (14:44)
[2024-12-13] MEDS: OFIRMEV IV 1000 MG VIAL 1,000 MG/100 ML VIAL IV PRN (14:45)
[2024-12-13] MEDS: MARCAINE 0.25% INJ ONE (14:50)
[2024-12-13] MEDS: DILAUDID INJ ONE (15:03)
[2024-12-13] MEDS ORDERED: BENADRYL INJ 50 MG VIAL IVP PRN (15:14)
[2024-12-13] MEDS ORDERED: ZOFRAN INJ 4 MG VIAL IVP PRN (15:14)
[2024-12-13] MEDS ORDERED: DILAUDID INJ IVP PRN (15:14)
[2024-12-13] MEDS ORDERED: BARHEMSYS INJ IVP PRN (15:14)
[2024-12-13] MEDS: ROBINUL IVP PRN (15:44)
[2024-12-13] MEDS: ROBINUL ONE (15:45)
[2024-12-13] MEDS: TORADOL 30 MG VIAL IVP PRN (15:49)
[2024-12-13] MEDS: NEO-SYNEPHRINE INJ ONE (15:59)
[2024-12-13] MEDS ORDERED: ALBUMIN HUMAN 25%- 100 ML 200 ML IV ONE (16:11)
[2024-12-13] MEDS ORDERED: DANTRIUM IVP PRN (16:18)
[2024-12-13] MEDS: ZEMURON 100 MG VIAL IVP PRN (16:33)
[2024-12-13] MEDS: ALBUMIN HUMAN 25%- 100 ML 200 ML IV SCH (16:53)
[2024-12-13] MEDS: PRECEDEX INJ VIAL IVP PRN (16:59)
[2024-12-13] MEDS: NEO-SYNEPHRINE INJ IVP PRN (17:12)
[2024-12-13] MEDS: BRIDION IVP PRN (17:24)
[2024-12-13] MEDS: DILAUDID INJ IVP PRN (17:32)
[2024-12-14 05:49] LABS: MEAN PLATELET VOLUME 8.3 fL (7.4-11.0); RED CELL DISTRIBUTION WIDTH 16.2 % (11.6-16.5)
[2024-12-14 06:06] LABS: PLATELET MORPHOLOGY COMMENT NORMAL (NORMAL)
[2024-12-14 06:07] LABS: COR CA(FOR HYPOALB) 9.3 mg/dL (8.5-10.1); COR NA(FOR HYPERGLY) 143 mmol/L (136-145); CREATININE 1.17 mg/dL (0.70-1.30); eGFR NON BLACK RACES > 60 (>60)
[2024-12-14] MEDS ORDERED: CONSULT PHARMACY - POTASSIUM & MAGNESIUM XX SCH (08:00)
--- NOTE | 2024-12-14 08:48 | DR.PROGNOT ---
HOSPITAL PROGRESS NOTE Progress Note for Day of: Progress Note Date: 12/14/24 Chief Complaint Chief Complaint: Patient is status post laparotomy, lysis of dense adhesions in the upper abdomen, closure and plication of perforated duodenal ulcer with drainage. Patient is doing very well, complaining about his NG tube. Minimal drainage and NG tube, urine output is adequate, mild drainage in NOEMI. WBC 10.8, hemoglobin 10.5, electrolytes are normal, BUN/creatinine are normal as well as liver function tests. Patient is afebrile and stable vital signs, blood pressure is slightly elevated. Past Medical Family Social History Allergies: Allergies No Known Drug Allergies Allergy (Unknown, Verified 12/12/24 15:13) Onset Date: 03/30/2020 Review Of Systems ROS: No change since H&P Vital Signs Vital Signs: Vital Signs Temperature 98 F Pulse Rate [Radial] 63 Respiratory Rate 20 Respiratory Rate 20 Blood Pressure [Right Arm] 176/86 O2 Sat by Pulse Oximetry 99 Physical Exam Oriented: Normal Eyes: Normal Ear: Normal Throat: Normal Respiratory: Normal Cardiovascular: Normal GI:Auscultation: Decreased GI:Palpation: Normal GI: Tenderness: Diffuse (Diffuse abdominal tenderness secondary to surgery.) Skin: Normal Musculoskeletal: Normal Psychiatric: Normal Mood Description: Calm Affect: Normal Speech Pattern: Clear and Appropriate Laboratory and Diagnostics 12/14/24 05:37 12/14/24 05:37 Labs: 12/13/24 15:06 Peritoneal Fluid Wound Gram Stain - Final Laboratory WBC 10.8 X10^3/uL (3.6-10.0) H 12/14/24 05:37 RBC 4.45 X10^6/uL (4.7-6.0) L 12/14/24 05:37 Hgb 10.5 g/dL (13.5-18.0) L 12/14/24 05:37 Hct 32.8 % (42.0-54.0) L 12/14/24 05:37 MCV 73.7 fL (80.0-100.0) L 12/14/24 05:37 MCH 23.7 pg (27.0-34.0) L 12/14/24 05:37 MCHC 32.1 g/dL (33.0-35.0) L 12/14/24 05:37 RDW 16.2 % (11.6-16.5) 12/14/24 05:37 Plt Count 227 X10^3/uL (150.0-450.0) 12/14/24 05:37 Plt Count Comment Adequate (ADEQUATE) 12/14/24 05:37 MPV 8.3 fL (7.4-11.0) 12/14/24 05:37 Neut % (Auto) 85.1 % (42.0-75.0) H 12/14/24 05:37 Lymph % (Auto) 7.2 % (21.0-51.0) L 12/14/24 05:37 [place] % (Auto) 7.6 % (0.0-13.0) 12/14/24 05:37 Eos % (Auto) 0.0 % (0.9-2.9) L 12/14/24 05:37 Baso % (Auto) 0.1 % (0.2-1.0) L 12/14/24 05:37 Neut # (Auto) 9.2 x10^3/uL (2.2-4.8) H 12/14/24 05:37 Lymph # (Auto) 0.8 X10^3/uL (1.3-2.9) L 12/14/24 05:37 [place] # (Auto) 0.8 x10^3/uL (0.3-0.8) 12/14/24 05:37 Eos # (Auto) 0.0 x10^3/uL (0.0-0.2) 12/14/24 05:37 Baso # (Auto) 0.0 X10^3/uL (0.0-0.1) 12/14/24 05:37 Absolute Nucleated RBC 0.1 /100WBC 12/14/24 05:37 Plt Morphology Comment Normal (NORMAL) 12/14/24 05:37 RBC Morphology Abnormal (NORMAL) 12/14/24 05:37 Hypochromasia 1+ A 12/14/24 05:37 Poikilocytosis Slight A 12/13/24 05:28 Microcytosis Slight A 12/14/24 05:37 Target Cells Slight A 12/14/24 05:37 Ovalocytes Slight A 12/14/24 05:37 Sodium 142 mmol/L (136-145) 12/14/24 05:37 Corrected Sodium 143 mmol/L (136-145) 12/14/24 05:37 Potassium 4.2 mmol/L (3.5-5.1) 12/14/24 05:37 Chloride 108 mmol/L (98-107) H 12/14/24 05:37 Carbon Dioxide 24.2 mmol/L (21-32) 12/14/24 05:37 BUN 16 mg/dL (7-18) 12/14/24 05:37 Creatinine 1.17 mg/dL (0.70-1.30) 12/14/24 05:37 Est GFR (MDRD) Af Amer > 60 (>60) 12/14/24 05:37 Est GFR (MDRD) Non-Af > 60 (>60) 12/14/24 05:37 Glucose 124 mg/dL (65-99) H 12/14/24 05:37 Calcium 8.4 mg/dL (8.5-10.1) L 12/14/24 05:37 Corrected Calcium 9.3 mg/dL (8.5-10.1) 12/14/24 05:37 Magnesium 1.7 mg/dL (2.0-2.9) L 12/14/24 05:37 Total Bilirubin 0.50 mg/dL (0.2-1.0) 12/14/24 05:37 AST 21 Units/L (15-37) 12/14/24 05:37 ALT 21 Units/L (12-78) 12/14/24 05:37 Alkaline Phosphatase 84 Units/L (46-116) 12/14/24 05:37 Total Protein 6.5 g/dL (6.4-8.2) 12/14/24 05:37 Albumin 2.9 g/dL (3.4-5.0) L 12/14/24 05:37 Globulin 3.6 g/dL (2.5-4.5) 12/14/24 05:37 Albumin/Globulin Ratio 0.8 Ratio (1.1-2.1) L 12/14/24 05:37 Amylase 73 Units/L (25-115) 12/12/24 15:10 Lipase 46 Units/L (16-77) 12/12/24 15:10 Assessment and Plan 1: Status post laparotomy, lysis of dense adhesions involving the upper abdomen, closure and plication of perforated duodenal ulcer, appendectomy. Day 1 To DC the NG tube and Horner catheter, out of bed, incentive spirometer and DVT prophylaxis, keep n.p.o. today 2: HTN . Problem Patient Problems: Patient Problems Gastric perforation (Acute) K25.5 Perforation bowel (Acute) K63.1
[2024-12-14] MEDS: D5 NS 1,000 ML IV 1,000 ML with MAGNESIUM SULFATE 50% INJ VIAL 1 G IV SCH (08:50)
--- NOTE | 2024-12-14 10:33 | PCM.PROG ---
Progress Note Progress Note for Day of Date of Exam: 12/14/24 Subjective Subjective: POD# 1 Exploratory laparotomy, Lysis of adhesions, closure and plication perforated duodenal ulcer with drainage and appendectomy. Patient seen at bedside, no acute events overnight. He was taken to the OR yesterday afternoon due to repeat CT still showing perforated viscus and surrounding fluid. NG tube was removed this morning. Patient states abdominal pain is well-controlled with current medications. He remains on IV antibiotics. His CTAP done yesterday did show right renal mass that needs further imaging. These results were discussed with the patient. Labs/imaging reviewed: - WBC 10.8 hemoglobin 10.5 potassium 4.2 creatinine 1.17 magnesium 1.7 - CTAP reviewed 12/13/2024 Plan: Continue current care, postop pain control. Follow surgery recommendations. Continue IV antibiotics. Replace electrolytes as per protocol. Continue hydration. Diet as per surgery. Will order renal ultrasound. Monitor BP, add Vasotec. Switch to PO meds when tolerating PO intake. Past Medical Family Social History Allergies: Allergies No Known Drug Allergies Allergy (Unknown, Verified 12/12/24 15:13) Onset Date: 03/30/2020 Review of Systems ROS: No change since H&P Vital Signs and I&O's Vital Signs: Vital Signs Temperature 98 F Pulse Rate [Radial] 63 Respiratory Rate 20 Respiratory Rate 20 Blood Pressure [Right Arm] 176/86 O2 Sat by Pulse Oximetry 99 Intake and Output: Intake & Output 12/11/24 12/12/24 12/13/24 12/14/24 23:59 23:59 23:59 23:59 Intake Total 461 / 461 8606 / 8606 1541 / 1541 Output Total 500 / 500 5050 / 5050 730 / 730 Balance -39 / -39 3556 / 3556 811 / 811 Physical Exam Oriented: Normal Eyes: Normal Ear: Normal Throat: Normal Respiratory: Normal Cardiovascular: Normal Auscultation: Bowel Sounds: Decreased Tenderness: Diffuse (Diffuse abdominal tenderness, NOEMI drain intact) Skin: Normal Musculoskeletal: Normal Psychiatric: Normal Mood Description: Calm Affect: Normal Speech Pattern: Clear and Appropriate Laboratory and Diagnostics 12/14/24 05:37 12/14/24 05:37 Labs: 12/13/24 15:06 Peritoneal Fluid Wound Gram Stain - Final Laboratory WBC 10.8 X10^3/uL (3.6-10.0) H 12/14/24 05:37 RBC 4.45 X10^6/uL (4.7-6.0) L 12/14/24 05:37 Hgb 10.5 g/dL (13.5-18.0) L 12/14/24 05:37 Hct 32.8 % (42.0-54.0) L 12/14/24 05:37 MCV 73.7 fL (80.0-100.0) L 12/14/24 05:37 MCH 23.7 pg (27.0-34.0) L 12/14/24 05:37 MCHC 32.1 g/dL (33.0-35.0) L 12/14/24 05:37 RDW 16.2 % (11.6-16.5) 12/14/24 05:37 Plt Count 227 X10^3/uL (150.0-450.0) 12/14/24 05:37 Plt Count Comment Adequate (ADEQUATE) 12/14/24 05:37 MPV 8.3 fL (7.4-11.0) 12/14/24 05:37 Neut % (Auto) 85.1 % (42.0-75.0) H 12/14/24 05:37 Lymph % (Auto) 7.2 % (21.0-51.0) L 12/14/24 05:37 [place] % (Auto) 7.6 % (0.0-13.0) 12/14/24 05:37 Eos % (Auto) 0.0 % (0.9-2.9) L 12/14/24 05:37 Baso % (Auto) 0.1 % (0.2-1.0) L 12/14/24 05:37 Neut # (Auto) 9.2 x10^3/uL (2.2-4.8) H 12/14/24 05:37 Lymph # (Auto) 0.8 X10^3/uL (1.3-2.9) L 12/14/24 05:37 [place] # (Auto) 0.8 x10^3/uL (0.3-0.8) 12/14/24 05:37 Eos # (Auto) 0.0 x10^3/uL (0.0-0.2) 12/14/24 05:37 Baso # (Auto) 0.0 X10^3/uL (0.0-0.1) 12/14/24 05:37 Absolute Nucleated RBC 0.1 /100WBC 12/14/24 05:37 Plt Morphology Comment Normal (NORMAL) 12/14/24 05:37 RBC Morphology Abnormal (NORMAL) 12/14/24 05:37 Hypochromasia 1+ A 12/14/24 05:37 Poikilocytosis Slight A 12/13/24 05:28 Microcytosis Slight A 12/14/24 05:37 Target Cells Slight A 12/14/24 05:37 Ovalocytes Slight A 12/14/24 05:37 Sodium 142 mmol/L (136-145) 12/14/24 05:37 Corrected Sodium 143 mmol/L (136-145) 12/14/24 05:37 Potassium 4.2 mmol/L (3.5-5.1) 12/14/24 05:37 Chloride 108 mmol/L (98-107) H 12/14/24 05:37 Carbon Dioxide 24.2 mmol/L (21-32) 12/14/24 05:37 BUN 16 mg/dL (7-18) 12/14/24 05:37 Creatinine 1.17 mg/dL (0.70-1.30) 12/14/24 05:37 Est GFR (MDRD) Af Amer > 60 (>60) 12/14/24 05:37 Est GFR (MDRD) Non-Af > 60 (>60) 12/14/24 05:37 Glucose 124 mg/dL (65-99) H 12/14/24 05:37 Calcium 8.4 mg/dL (8.5-10.1) L 12/14/24 05:37 Corrected Calcium 9.3 mg/dL (8.5-10.1) 12/14/24 05:37 Magnesium 1.7 mg/dL (2.0-2.9) L 12/14/24 05:37 Total Bilirubin 0.50 mg/dL (0.2-1.0) 12/14/24 05:37 AST 21 Units/L (15-37) 12/14/24 05:37 ALT 21 Units/L (12-78) 12/14/24 05:37 Alkaline Phosphatase 84 Units/L (46-116) 12/14/24 05:37 Total Protein 6.5 g/dL (6.4-8.2) 12/14/24 05:37 Albumin 2.9 g/dL (3.4-5.0) L 12/14/24 05:37 Globulin 3.6 g/dL (2.5-4.5) 12/14/24 05:37 Albumin/Globulin Ratio 0.8 Ratio (1.1-2.1) L 12/14/24 05:37 Amylase 73 Units/L (25-115) 12/12/24 15:10 Lipase 46 Units/L (16-77) 12/12/24 15:10 Plan (1) Duodenal ulcer perforation: Status: Acute (2) Gastric perforation: Status: Acute (3) S/P laparoscopy with lysis of adhesions: Status: Acute (4) Hypomagnesemia: Status: Acute (5) S/P appendectomy: Status: Acute (6) Hypertension: Status: Acute Qualifiers: Hypertension type: primary hypertension Qualified Code(s): I10 - Essential (primary) hypertension (7) Arthritis: Status: Chronic (8) Degenerative arthritis of cervical spine: Status: Chronic Qualifiers: Spinal osteoarthritis complication: unspecified spinal osteoarthritis Q ualified Code(s): M47.812 - Spondylosis without myelopathy or radiculopathy, cervical region
[2024-12-14] MEDS: VASOTEC INJ 2.5 MG VIAL IVP SCH (10:55)
--- NOTE | 2024-12-14 14:05 | US ---
EXAM: RENAL SCAN HISTORY: abn cat SCN MASS RENAL; COMPARISON: CT abdomen and pelvis 12/13/2024 TECHNIQUE: 54 images made by the hospice spiritual care coordinator. Rojas scale and color-flow images of the kidneys and pelvis were obtained. FINDINGS: Right kidney: 10.7 x 5.7 x 5.5 cm Left kidney: 9.3 x 5.7 x 6.4 cm The cortex was normal in thickness. The cortex has increased echogenicity consistent with medical renal disease. There is a solid mass in the right with internal blood flow seen by color imaging. It measures 3.8 cm in longest dimension. The finding is suspicious for carcinoma. There is a simple cyst in the right kidney measuring 11 mm. The collecting system was not dilated. No hydronephrosis. Right resistive index measures 0.74. Left resistive index measures 0.63. The urinary bladder was minimally distended with no wall thickening. Bladder volume was 43 mL. IMPRESSION: 1. (3.8 cm) solid mass right kidney suspicious for malignancy 2. Small simple cyst right kidney 3. Medical renal disease THIS IS AN ELECTRONICALLY VERIFIED FINAL REPORT 12/14/2024 1:51 PM - Electronically signed by Parth Morales MD
[2024-12-15 05:46] LABS: MEAN PLATELET VOLUME 8.8 fL (7.4-11.0); RED CELL DISTRIBUTION WIDTH 16.4 % (11.6-16.5)
[2024-12-15 05:59] LABS: PLATELET MORPHOLOGY COMMENT NORMAL (NORMAL)
[2024-12-15 06:07] LABS: COR CA(FOR HYPOALB) 9.4 mg/dL (8.5-10.1); CREATININE 0.86 mg/dL (0.70-1.30); eGFR NON BLACK RACES > 60 (>60)
[2024-12-15] MEDS ORDERED: CONSULT PHARMACY - POTASSIUM & MAGNESIUM XX SCH (07:00)
--- NOTE | 2024-12-15 07:37 | DR.PROGNOT ---
HOSPITAL PROGRESS NOTE Progress Note for Day of: Progress Note Date: 12/15/24 Chief Complaint Chief Complaint: Patient is status post laparotomy, lysis of dense adhesions in the upper abdomen, closure and plication of perforated duodenal ulcer with drainage. Patient is doing very well, minimal drainage in NOEMI. afebrile Past Medical Family Social History Allergies: Allergies No Known Drug Allergies Allergy (Unknown, Verified 12/12/24 15:13) Onset Date: 03/30/2020 Review Of Systems ROS: No change since H&P Vital Signs Vital Signs: Vital Signs Temperature 98.1 F Temperature 98.4 F Pulse Rate [Radial] 60 Pulse Rate [Radial] 73 Respiratory Rate 20 Respiratory Rate 20 Respiratory Rate 18 Respiratory Rate 18 Blood Pressure [Right Arm] 160/82 Blood Pressure [Right Arm] 188/92 Blood Pressure [Right Arm] 160/88 O2 Sat by Pulse Oximetry 96 O2 Sat by Pulse Oximetry 97 Physical Exam Oriented: Normal Eyes: Normal Ear: Normal Throat: Normal Respiratory: Normal Cardiovascular: Normal GI:Auscultation: Decreased GI:Palpation: Normal GI: Tenderness: Diffuse (Diffuse abdominal tenderness, NOEMI drain intact) Skin: Normal Musculoskeletal: Normal Psychiatric: Normal Mood Description: Calm Affect: Normal Speech Pattern: Clear and Appropriate Laboratory and Diagnostics 12/15/24 05:18 12/15/24 05:18 Labs: 12/13/24 15:06 Peritoneal Fluid Wound Gram Stain - Final 12/13/24 15:06 Peritoneal Fluid Wound Culture - Preliminary Laboratory WBC 8.1 X10^3/uL (3.6-10.0) 12/15/24 05:18 RBC 4.29 X10^6/uL (4.7-6.0) L 12/15/24 05:18 Hgb 10.2 g/dL (13.5-18.0) L 12/15/24 05:18 Hct 31.3 % (42.0-54.0) L 12/15/24 05:18 MCV 72.9 fL (80.0-100.0) L 12/15/24 05:18 MCH 23.7 pg (27.0-34.0) L 12/15/24 05:18 MCHC 32.5 g/dL (33.0-35.0) L 12/15/24 05:18 RDW 16.4 % (11.6-16.5) 12/15/24 05:18 Plt Count 222 X10^3/uL (150.0-450.0) 12/15/24 05:18 Plt Count Comment Adequate (ADEQUATE) 12/15/24 05:18 MPV 8.8 fL (7.4-11.0) 12/15/24 05:18 Neut % (Auto) 73.2 % (42.0-75.0) 12/15/24 05:18 Lymph % (Auto) 18.2 % (21.0-51.0) L 12/15/24 05:18 [place] % (Auto) 6.4 % (0.0-13.0) 12/15/24 05:18 Eos % (Auto) 0.9 % (0.9-2.9) 12/15/24 05:18 Baso % (Auto) 1.3 % (0.2-1.0) H 12/15/24 05:18 Neut # (Auto) 5.9 x10^3/uL (2.2-4.8) H 12/15/24 05:18 Lymph # (Auto) 1.5 X10^3/uL (1.3-2.9) 12/15/24 05:18 [place] # (Auto) 0.5 x10^3/uL (0.3-0.8) 12/15/24 05:18 Eos # (Auto) 0.1 x10^3/uL (0.0-0.2) 12/15/24 05:18 Baso # (Auto) 0.1 X10^3/uL (0.0-0.1) 12/15/24 05:18 Absolute Nucleated RBC 0.1 /100WBC 12/15/24 05:18 Plt Morphology Comment Normal (NORMAL) 12/15/24 05:18 RBC Morphology Abnormal (NORMAL) 12/15/24 05:18 Hypochromasia 1+ A 12/15/24 05:18 Poikilocytosis Slight A 12/13/24 05:28 Microcytosis Slight A 12/15/24 05:18 Target Cells Slight A 12/15/24 05:18 Ovalocytes Slight A 12/15/24 05:18 Sodium 141 mmol/L (136-145) 12/15/24 05:18 Corrected Sodium TNP 12/15/24 05:18 Potassium 3.4 mmol/L (3.5-5.1) L 12/15/24 05:18 Chloride 107 mmol/L (98-107) 12/15/24 05:18 Carbon Dioxide 28.2 mmol/L (21-32) 12/15/24 05:18 BUN 12 mg/dL (7-18) 12/15/24 05:18 Creatinine 0.86 mg/dL (0.70-1.30) 12/15/24 05:18 Est GFR (MDRD) Af Amer > 60 (>60) 12/15/24 05:18 Est GFR (MDRD) Non-Af > 60 (>60) 12/15/24 05:18 Glucose 105 mg/dL (65-99) H 12/15/24 05:18 Calcium 8.4 mg/dL (8.5-10.1) L 12/15/24 05:18 Corrected Calcium 9.4 mg/dL (8.5-10.1) 12/15/24 05:18 Magnesium 1.7 mg/dL (2.0-2.9) L 12/15/24 05:18 Total Bilirubin 0.60 mg/dL (0.2-1.0) 12/15/24 05:18 AST 21 Units/L (15-37) 12/15/24 05:18 ALT 27 Units/L (12-78) 12/15/24 05:18 Alkaline Phosphatase 73 Units/L (46-116) 12/15/24 05:18 Total Protein 6.3 g/dL (6.4-8.2) L 12/15/24 05:18 Albumin 2.7 g/dL (3.4-5.0) L 12/15/24 05:18 Globulin 3.6 g/dL (2.5-4.5) 12/15/24 05:18 Albumin/Globulin Ratio 0.8 Ratio (1.1-2.1) L 12/15/24 05:18 Amylase 73 Units/L (25-115) 12/12/24 15:10 Lipase 46 Units/L (16-77) 12/12/24 15:10 Assessment and Plan 1: Status post laparotomy, lysis of dense adhesions involving the upper abdomen, closure and plication of perforated duodenal ulcer, appendectomy. Day 2 to start clear liquid . 2: HTN . Problem Patient Problems: Patient Problems Gastric perforation (Acute) K25.5 Perforation bowel (Acute) K63.1
[2024-12-15] MEDS: K-DUR TAB 20 MEQ PO SCH (08:29)
[2024-12-15] MEDS: D5 NS IV SCH (08:34)
[2024-12-15] MEDS: MAGNESIUM SULFATE IV SCH (08:34)
[2024-12-15] MEDS: LOVENOX INJ 40 MG SYR SC SCH (08:35)
[2024-12-15] MEDS ORDERED: K-RIDER 10 MEQ/100 ML WATER 10 MEQ/100 ML BAG IV SCH (09:00)
[2024-12-15] MEDS ORDERED: MAGNESIUM SULFATE 1 GRAM/100 mL PREMIX 1 G/100 ML BAG IV SCH (09:00)
--- NOTE | 2024-12-15 09:49 | PCM.PROG ---
Progress Note Progress Note for Day of Date of Exam: 12/15/24 Subjective Subjective: POD# 2 Exploratory laparotomy, Lysis of adhesions, closure and plication perforated duodenal ulcer with drainage and appendectomy. Patient seen at bedside, no acute events overnight. He is feeling better this morning, abdominal pain is controlled. He was started on clears today. He has not had a BM yet. His BP has been elevated. He used to take losartan 50 mg daily but reports it made him sick. Renal US showed right solid mass concerning for malignancy, discussed results with patient. He will need Urology follow up outpatient. Labs/imaging reviewed: - WBC 8.1 hemoglobin 10.2 potassium 3.4 creatinine 0.86 magnesium 1.7 - CTAP reviewed 12/13/2024 - Renal US reviewed Plan: Continue current care, postop pain control. Follow surgery recommendations. Continue IV antibiotics. Replace electrolytes as per protocol. Continue hydration. Continue clears as per surgery. Monitor BP, restart losartan 25 mg daily. Continue hydralazine prn. Patient will need outpatient Urology referral. Monitor AM labs/imaging. Past Medical Family Social History Allergies: Allergies No Known Drug Allergies Allergy (Unknown, Verified 12/12/24 15:13) Onset Date: 03/30/2020 Review of Systems ROS: No change since H&P Vital Signs and I&O's Vital Signs: Vital Signs Temperature 98.1 F Temperature 98.1 F Pulse Rate [Radial] 77 Pulse Rate [Radial] 60 Respiratory Rate 18 Respiratory Rate 20 Respiratory Rate 20 Respiratory Rate 18 Blood Pressure [Right Arm] 183/86 Blood Pressure [Right Arm] 160/82 Blood Pressure [Right Arm] 188/92 O2 Sat by Pulse Oximetry 94 O2 Sat by Pulse Oximetry 96 Intake and Output: Intake & Output 12/12/24 12/13/24 12/14/24 12/15/24 23:59 23:59 23:59 23:59 Intake Total 461 / 461 8606 / 8606 3676 / 3676 886 / 886 Output Total 500 / 500 5050 / 5050 1140 / 1140 835 / 835 Balance -39 / -39 3556 / 3556 2536 / 2536 51 / 51 Physical Exam Oriented: Normal Eyes: Normal Ear: Normal Throat: Normal Respiratory: Normal Cardiovascular: Normal Auscultation: Bowel Sounds: Decreased Tenderness: Diffuse (Diffuse abdominal tenderness, NOEMI drain intact) Skin: Normal Musculoskeletal: Normal Psychiatric: Normal Mood Description: Calm Affect: Normal Speech Pattern: Clear and Appropriate Laboratory and Diagnostics 12/15/24 05:18 12/15/24 05:18 Labs: 12/13/24 15:06 Peritoneal Fluid Wound Gram Stain - Final 12/13/24 15:06 Peritoneal Fluid Wound Culture - Preliminary Laboratory WBC 8.1 X10^3/uL (3.6-10.0) 12/15/24 05:18 RBC 4.29 X10^6/uL (4.7-6.0) L 12/15/24 05:18 Hgb 10.2 g/dL (13.5-18.0) L 12/15/24 05:18 Hct 31.3 % (42.0-54.0) L 12/15/24 05:18 MCV 72.9 fL (80.0-100.0) L 12/15/24 05:18 MCH 23.7 pg (27.0-34.0) L 12/15/24 05:18 MCHC 32.5 g/dL (33.0-35.0) L 12/15/24 05:18 RDW 16.4 % (11.6-16.5) 12/15/24 05:18 Plt Count 222 X10^3/uL (150.0-450.0) 12/15/24 05:18 Plt Count Comment Adequate (ADEQUATE) 12/15/24 05:18 MPV 8.8 fL (7.4-11.0) 12/15/24 05:18 Neut % (Auto) 73.2 % (42.0-75.0) 12/15/24 05:18 Lymph % (Auto) 18.2 % (21.0-51.0) L 12/15/24 05:18 [place] % (Auto) 6.4 % (0.0-13.0) 12/15/24 05:18 Eos % (Auto) 0.9 % (0.9-2.9) 12/15/24 05:18 Baso % (Auto) 1.3 % (0.2-1.0) H 12/15/24 05:18 Neut # (Auto) 5.9 x10^3/uL (2.2-4.8) H 12/15/24 05:18 Lymph # (Auto) 1.5 X10^3/uL (1.3-2.9) 12/15/24 05:18 [place] # (Auto) 0.5 x10^3/uL (0.3-0.8) 12/15/24 05:18 Eos # (Auto) 0.1 x10^3/uL (0.0-0.2) 12/15/24 05:18 Baso # (Auto) 0.1 X10^3/uL (0.0-0.1) 12/15/24 05:18 Absolute Nucleated RBC 0.1 /100WBC 12/15/24 05:18 Plt Morphology Comment Normal (NORMAL) 12/15/24 05:18 RBC Morphology Abnormal (NORMAL) 12/15/24 05:18 Hypochromasia 1+ A 12/15/24 05:18 Poikilocytosis Slight A 12/13/24 05:28 Microcytosis Slight A 12/15/24 05:18 Target Cells Slight A 12/15/24 05:18 Ovalocytes Slight A 12/15/24 05:18 Sodium 141 mmol/L (136-145) 12/15/24 05:18 Corrected Sodium TNP 12/15/24 05:18 Potassium 3.4 mmol/L (3.5-5.1) L 12/15/24 05:18 Chloride 107 mmol/L (98-107) 12/15/24 05:18 Carbon Dioxide 28.2 mmol/L (21-32) 12/15/24 05:18 BUN 12 mg/dL (7-18) 12/15/24 05:18 Creatinine 0.86 mg/dL (0.70-1.30) 12/15/24 05:18 Est GFR (MDRD) Af Amer > 60 (>60) 12/15/24 05:18 Est GFR (MDRD) Non-Af > 60 (>60) 12/15/24 05:18 Glucose 105 mg/dL (65-99) H 12/15/24 05:18 Calcium 8.4 mg/dL (8.5-10.1) L 12/15/24 05:18 Corrected Calcium 9.4 mg/dL (8.5-10.1) 12/15/24 05:18 Magnesium 1.7 mg/dL (2.0-2.9) L 12/15/24 05:18 Total Bilirubin 0.60 mg/dL (0.2-1.0) 12/15/24 05:18 AST 21 Units/L (15-37) 12/15/24 05:18 ALT 27 Units/L (12-78) 12/15/24 05:18 Alkaline Phosphatase 73 Units/L (46-116) 12/15/24 05:18 Total Protein 6.3 g/dL (6.4-8.2) L 12/15/24 05:18 Albumin 2.7 g/dL (3.4-5.0) L 12/15/24 05:18 Globulin 3.6 g/dL (2.5-4.5) 12/15/24 05:18 Albumin/Globulin Ratio 0.8 Ratio (1.1-2.1) L 12/15/24 05:18 Amylase 73 Units/L (25-115) 12/12/24 15:10 Lipase 46 Units/L (16-77) 12/12/24 15:10 Plan (1) Duodenal ulcer perforation: Status: Acute (2) Gastric perforation: Status: Acute (3) S/P laparoscopy with lysis of adhesions: Status: Acute (4) Hypomagnesemia: Status: Acute (5) S/P appendectomy: Status: Acute (6) Hypertension: Status: Acute Qualifiers: Hypertension type: primary hypertension Qualified Code(s): I10 - Essential (primary) hypertension (7) Arthritis: Status: Chronic (8) 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
[2024-12-15] MEDS: COZAAR PO SCH (10:19)
[2024-12-16 04:33] VITALS: O2SAT 97
[2024-12-16 05:57] LABS: MEAN PLATELET VOLUME 8.2 fL (7.4-11.0); RED CELL DISTRIBUTION WIDTH 16.5 % (11.6-16.5)
[2024-12-16 06:03] LABS: PLATELET MORPHOLOGY COMMENT NORMAL (NORMAL)
[2024-12-16 06:15] LABS: COR CA(FOR HYPOALB) 9.6 mg/dL (8.5-10.1); CREATININE 0.81 mg/dL (0.70-1.30); eGFR NON BLACK RACES > 60 (>60)
[2024-12-16] MEDS ORDERED: CONSULT PHARMACY - POTASSIUM & MAGNESIUM XX SCH (07:00)
[2024-12-16] MEDS: K-DUR TAB 20 MEQ PO ONE (09:05)
[2024-12-16 09:13] VITALS: TEMP 97.6
--- NOTE | 2024-12-16 11:12 | PCM.PROG ---
Progress Note Progress Note for Day of Date of Exam: 12/16/24 Subjective Subjective: POD# 3 Exploratory laparotomy, Lysis of adhesions, closure and plication perforated duodenal ulcer with drainage and appendectomy. Patient seen at bedside, no acute events overnight. He is doing well this morning. He is tolerating a diet. Renal US showed right solid mass concerning for malignancy, discussed results with patient. He will need Urology follow up outpatient. Labs/imaging reviewed: - WBC 5.8, hemoglobin 10.5, platelets 253, sodium 140, potassium 3.5, creatinine 0.81, glucose 110 - CTAP reviewed 12/13/2024 - Renal US reviewed Plan: Follow surgery recommendations, Plan to discharge today. Patient will need outpatient Urology referral. Medicine signing off. Past Medical Family Social History Allergies: Allergies No Known Drug Allergies Allergy (Unknown, Verified 12/12/24 15:13) Onset Date: 03/30/2020 Review of Systems ROS changes noted: see HPI Vital Signs and I&O's Vital Signs: Vital Signs Temperature 97.6 F Temperature 98.4 F Pulse Rate [Radial] 91 Pulse Rate [Radial] 64 Respiratory Rate 18 Respiratory Rate 20 Blood Pressure [Left Arm] 160/94 Blood Pressure [Right Arm] 152/74 O2 Sat by Pulse Oximetry 97 O2 Sat by Pulse Oximetry 97 Intake and Output: Intake & Output 12/13/24 12/14/24 12/15/24 12/16/24 23:59 23:59 23:59 23:59 Intake Total 8606 / 8606 3676 / 3676 4345 / 4345 1397 / 1397 Output Total 5050 / 5050 1140 / 1140 1655 / 1655 965 / 965 Balance 3556 / 3556 2536 / 2536 2690 / 2690 432 / 432 Physical Exam Oriented: Normal Eyes: Normal Ear: Normal Throat: Normal Respiratory: Normal Cardiovascular: Normal Auscultation: Bowel Sounds: Normal Tenderness: Normal Skin: Normal Musculoskeletal: Normal Psychiatric: Normal Mood Description: Calm Affect: Normal Speech Pattern: Clear and Appropriate Laboratory and Diagnostics 12/16/24 05:40 12/16/24 05:40 Labs: 12/13/24 15:06 Peritoneal Fluid Wound Gram Stain - Final 12/13/24 15:06 Peritoneal Fluid Wound Culture - Preliminary Laboratory WBC 5.8 X10^3/uL (3.6-10.0) 12/16/24 05:40 RBC 4.47 X10^6/uL (4.7-6.0) L 12/16/24 05:40 Hgb 10.5 g/dL (13.5-18.0) L 12/16/24 05:40 Hct 32.8 % (42.0-54.0) L 12/16/24 05:40 MCV 73.5 fL (80.0-100.0) L 12/16/24 05:40 MCH 23.4 pg (27.0-34.0) L 12/16/24 05:40 MCHC 31.9 g/dL (33.0-35.0) L 12/16/24 05:40 RDW 16.5 % (11.6-16.5) 12/16/24 05:40 Plt Count 253 X10^3/uL (150.0-450.0) 12/16/24 05:40 Plt Count Comment Adequate (ADEQUATE) 12/16/24 05:40 MPV 8.2 fL (7.4-11.0) 12/16/24 05:40 Neut % (Auto) 68.9 % (42.0-75.0) 12/16/24 05:40 Lymph % (Auto) 18.9 % (21.0-51.0) L 12/16/24 05:40 Nuckolls % (Auto) 7.7 % (0.0-13.0) 12/16/24 05:40 Eos % (Auto) 3.5 % (0.9-2.9) H 12/16/24 05:40 Baso % (Auto) 1.0 % (0.2-1.0) 12/16/24 05:40 Neut # (Auto) 4.0 x10^3/uL (2.2-4.8) 12/16/24 05:40 Lymph # (Auto) 1.1 X10^3/uL (1.3-2.9) L 12/16/24 05:40 Nuckolls # (Auto) 0.4 x10^3/uL (0.3-0.8) 12/16/24 05:40 Eos # (Auto) 0.2 x10^3/uL (0.0-0.2) 12/16/24 05:40 Baso # (Auto) 0.1 X10^3/uL (0.0-0.1) 12/16/24 05:40 Absolute Nucleated RBC 0.0 /100WBC 12/16/24 05:40 Plt Morphology Comment Normal (NORMAL) 12/16/24 05:40 RBC Morphology Abnormal (NORMAL) 12/16/24 05:40 Hypochromasia 1+ A 12/16/24 05:40 Poikilocytosis Slight A 12/13/24 05:28 Microcytosis Slight A 12/16/24 05:40 Target Cells Slight A 12/15/24 05:18 Ovalocytes Slight A 12/16/24 05:40 Sodium 140 mmol/L (136-145) 12/16/24 05:40 Corrected Sodium TNP 12/16/24 05:40 Potassium 3.5 mmol/L (3.5-5.1) 12/16/24 05:40 Chloride 106 mmol/L (98-107) 12/16/24 05:40 Carbon Dioxide 26.2 mmol/L (21-32) 12/16/24 05:40 BUN 10 mg/dL (7-18) 12/16/24 05:40 Creatinine 0.81 mg/dL (0.70-1.30) 12/16/24 05:40 Est GFR (MDRD) Af Amer > 60 (>60) 12/16/24 05:40 Est GFR (MDRD) Non-Af > 60 (>60) 12/16/24 05:40 Glucose 110 mg/dL (65-99) H 12/16/24 05:40 Calcium 8.6 mg/dL (8.5-10.1) 12/16/24 05:40 Corrected Calcium 9.6 mg/dL (8.5-10.1) 12/16/24 05:40 Magnesium 2.1 mg/dL (2.0-2.9) 12/16/24 05:40 Total Bilirubin 0.60 mg/dL (0.2-1.0) 12/16/24 05:40 AST 15 Units/L (15-37) 12/16/24 05:40 ALT 26 Units/L (12-78) 12/16/24 05:40 Alkaline Phosphatase 72 Units/L (46-116) 12/16/24 05:40 Total Protein 6.3 g/dL (6.4-8.2) L 12/16/24 05:40 Albumin 2.7 g/dL (3.4-5.0) L 12/16/24 05:40 Globulin 3.6 g/dL (2.5-4.5) 12/16/24 05:40 Albumin/Globulin Ratio 0.8 Ratio (1.1-2.1) L 12/16/24 05:40 Amylase 73 Units/L (25-115) 12/12/24 15:10 Lipase 46 Units/L (16-77) 12/12/24 15:10 Plan (1) Duodenal ulcer perforation: Status: Acute (2) Gastric perforation: Status: Acute (3) S/P laparoscopy with lysis of adhesions: Status: Acute (4) Hypomagnesemia: Status: Acute (5) S/P appendectomy: Status: Acute (6) Hypertension: Status: Acute Qualifiers: Hypertension type: primary hypertension Qualified Code(s): I10 - Essential (primary) hypertension (7) Arthritis: Status: Chronic (8) 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
[2024-12-16 12:26] VITALS: BP 165/86; PULSE 97
[2024-12-16 13:09] VITALS: RESP 20
== END 2024-12-16 14:45 | disposition home or self-care (01) | DRG 328 ==
LOC: ER 15:03 → MED/SURG 17:22
PROVIDERS: ADMIT Surgery; ATTEND Surgery